=== PATIENT | female | born 1945 | race Two or more races ===

== ENCOUNTER 2018-03-09 13:50 | Emergency (ER) | payer OTHER ==
[~2018-03-09] VITALS: Ht 160 cm; Wt 65.8 kg
[~2018-03-09 13:50] MED LIST: HYZAAR 50/12.51 TAB PO; LIPITOR40 MG PO; METFORMIN HCL500 MG PO; PROTONIX40 MG PO; ZANTAC150 MG PO
[2018-03-10] MEDS ORDERED: ACIDOPHILUS1 EAC5 PO (09:58)
[2018-03-10] MEDS ORDERED: CIPRO500 MG PO (09:58)
[2018-03-10] MEDS ORDERED: PANTOPRAZOLE SO40 MG PO (09:58)
[2018-03-10] MEDS ORDERED: METRONIDAZOLE500 MG PO (09:58)
== END 2018-03-10 11:38 | disposition home or self-care (01) ==
LOC: ER 13:50
DX: K52.89 Other specified noninfective gastroenteritis and colitis (principal); K57.32 Diverticulitis of large intestine without perforation or abscess without bleeding; R10.32 Left lower quadrant pain

== ENCOUNTER 2018-03-15 13:32 | Emergency (ER) | payer OTHER ==
[~2018-03-15] VITALS: Ht 160 cm; Wt 65.8 kg
[~2018-03-15 13:32] MED LIST changes: +ACIDOPHILUS1 EAC5 PO; +CIPRO500 MG PO; +METRONIDAZOLE500 MG PO; +PANTOPRAZOLE SO40 MG PO
== END 2018-03-15 21:17 | disposition home or self-care (01) ==
LOC: ER 13:32
DX: K57.30 Diverticulosis of large intestine without perforation or abscess without bleeding (principal)

== ENCOUNTER 2018-06-09 06:00 | Day surgery (SDC) | payer OTHER ==
[~2018-06-09 06:00] MED LIST changes: +DELZICOL400 M1 PO; +HYZAAR 50-12.51 EACH PO; +LEVSIN/SL0.125 MG SL; +LIPITOR20 MG PO; +PROBIOTIC1 EAC3 PO; +PROTONIX40 M1 PO
[2018-06-09] MEDS ORDERED: NEURONTIN300 MG PO (13:25)
[2018-06-09] MEDS ORDERED: ULTRACET PO (13:25)
[2018-06-09] MEDS ORDERED: MIRALAX17 GM PO (13:26)
== END 2018-06-09 17:10 | disposition home or self-care (01) ==
LOC: CIR.AMB 06:00
DX: K43.6 Other and unspecified ventral hernia with obstruction, without gangrene (principal)

== ENCOUNTER 2018-11-30 09:22 | Outpatient (CLI) | payer OTHER ==
[~2018-11-30 09:22] MED LIST changes: +MIRALAX17 GM PO; +NEURONTIN300 MG PO; +ULTRACET PO
== END 2018-11-30 09:29 | disposition home or self-care (01) ==
LOC: SONOGRAMA 09:22 → MAMO-SONO 09:45
DX: R10.32 Left lower quadrant pain (principal)

== ENCOUNTER → 2018-12-31 | Outpatient (CLI) | payer OTHER | END | disposition home or self-care (01) | LOC: NUCLEAR 11:00 | DX: I65.29 Occlusion and stenosis of unspecified carotid artery (principal) ==

== ENCOUNTER 2019-05-26 09:39 | Outpatient (CLI) | payer OTHER | END 2019-05-26 09:49 | disposition home or self-care (01) | LOC: NUCLEAR 09:39 | DX: I73.9 Peripheral vascular disease, unspecified (principal) ==